=== PATIENT | female | born 1995 | race Caucasian/White ===

== ENCOUNTER 2017-12-10 12:56 | Inpatient (IN) | payer OTHER ==
[~2017-12-10] VITALS: Ht 162.6 cm; Wt 106.4 kg
--- NOTE | 2017-12-10 15:59 | ED PSYCHIATRIC COMPLAINT ---
History of Present Illness General Chief Complaint: Psychiatric Related Complaint Stated Complaint: DEPRESSION Source: patient Exam Limitations: no limitations Allergies Coded Allergies: shellfish derived (Severe, ANAPHYLAXIS 11/25/17) iodine (unknown, shellfish allergy 11/25/17) Triage Note: 22 YO FEMALE TO [place] WITH PARENTS, STATES HER DPRESSION HAS GOTTEN WORSE AND SHE IS HAVING +SI THOUGHTS. DENIES CURRENT PLAN. STATES SHE JUST STARTED ON LITHIUM YESTERDAY, STATES SHE SEES IOP. DENIES ALCOHOL/DRUG USE. Triage Nurses Notes Reviewed? yes : No Patient currently breastfeeds: No HPI: Patient presents for evaluation of worsening depression over the past month or so. Patient has a history of depression prior to that but has not been on any medications until recently. She was just placed on lithium via the [facility] outpatient psychiatric program. Patient states she has had suicide ideation and go so far as to save that she has done "a lot" of research into suicide. She denies a specific plan but states that there is a number of different way she would consider doing it. (Liliam SORIANO,Heladio Harry) Vital Signs & Intake/Output Vital Signs & Intake/Output Vital Signs Date Time Temp Pulse Resp B/P B/P Pulse O2 O2 Flow FiO2 Mean Ox Delivery Rate 12/11 1211 99.6 82 18 131/69 96 Room Air 12/11 0904 99.4 86 18 122/60 99 Room Air / 0630 98.5 89 18 121/73 98 Room Air / 0030 96.4 82 18 141/86 100 Room Air / 2203 98.8 82 18 141/81 98 Room Air 12/10 2002 98.1 80 18 120/77 98 / 1753 98.6 86 18 125/80 99 /03 1539 98.5 76 18 127/67 100 04/03 1434 Room Air / 1302 98.3 89 18 139/82 98 Room Air ED Intake and Output 12/11 0000 12/10 1200 Intake Total 480 Output Total Balance 480 Intake, Oral 480 Patient 238 lb Weight Weight Reported by Patient Measurement Method (Heladio Carpenter DO) Past History Travel History Traveled to [place] past 21 day No Medical History Any Pertinent Medical History? 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 No (Liliam SORIANO,Heladio Harry) Review of Systems Review of Systems Constitutional: Reports: no symptoms. EENTM: Reports: no symptoms. Respiratory: Reports: no symptoms. Cardiovascular: Reports: no symptoms. GI: Reports: no symptoms. Genitourinary: Reports: no symptoms. Musculoskeletal: Reports: no symptoms. Skin: Reports: no symptoms. Neurological/Psychological: Reports: see HPI. Hematologic/Endocrine: Reports: no symptoms. Immunologic/Allergic: Reports: no symptoms. All Other Systems: Reviewed and Negative (Liliam SORIANO,Heladio Harry) Physical Exam Physical Exam General Appearance: SEE BELOW Neurological/Psychiatric: SEE BELOW Comments: General: Alert, calm, cooperative Head: Normocephalic, atraumatic Eyes: Normal inspection, no nystagmus, EOMI Ears: Normal inspection Nose: Normal inspection Throat: Moist mucosa Neck: Supple, no goiter Lungs: No respiratory distress Abdomen: Nondistended Extremities: Normal range of motion grossly, no tremors present, no cyanosis clubbing or edema of the upper extremities Neurologic: cranial nerves II through XII grossly intact, speech clear Psychiatric: No apparent delusions or hallucinations, no pressured speech or thought blocking SAD PERSONS Done? 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 12/11/2017 8:55:40 AM patient signed out to me by Dr. Mckeon at shift global climate change researcher. At the request of this patient's nurse, I have reviewed the chart regarding the amoxicillin order. It seems the patient was being treated presumptively with amoxicillin for a sore throat and the absence of a throat culture. I have ordered a quick strep and we'll treat the patient accordingly. 12/11/2017 11:34:50 AM patient's rapid strep test is negative so the amoxicillin has been discontinued. Jess is currently resting comfortably and awaiting disposition by crisis. (Liliam SORIANO,Heladio Harry) Plan of Care: Orders Procedure Date/time Status LITHIUM 12/15 0600 Active Regular Diet 12/11 D Active Regular Diet 12/11 B Complete Admit to inpatient psych 12/11 1231 Active Admit to inpatient psych 12/11 1230 Active EKG 12/11 1220 Active Patient Data - inpatient psych 12/11 1215 Active Admit to inpatient psych 12/11 1215 Active THROAT CULTURE W/QUICK STREP 12/11 0855 Active Vital Signs 12/11 UNK Active Nursing Misc 12/11 UNK Active Alternative Nursing Therapy 12/11 UNK Active Activity/Ambulation 12/11 UNK Active Add-on Test (ER Only) 12/10 2213 Active Add-on Test (ER Only) 12/10 1819 Active CULTURE,URINE 12/10 1657 Active URINE 12/10 1657 Complete LITHIUM 12/10 1613 Complete Continuous Observation Monitor 12/10 1559 Active ED CRISIS PSYCH CONSULT 12/10 1559 Active URINE DRUGS OF ABUSE 12/10 1541 Complete URINALYSIS 12/10 1541 Complete ETHANOL 12/10 1541 Complete COMPREHENSIVE METABOLIC PANEL 12/10 1541 Complete CBC WITHOUT DIFFERENTIAL 12/10 1541 Complete Current Medications Sig/Davonet Start time Last Medication Dose Stop Time Status Admin Harviell Carbonate 300 MG BID@0800,12/11 2000 UNVr (Harviell Carbonate) Acetaminophen 650 MG Q6P PRN 12/11 1230 UNVr (Tylenol) Al Hydroxide/Mg 30 ML Q4-6 PRN PRN 12/11 1230 UNVr Hydroxide (Maalox Plus) Benztropine Mesylate 1 MG Q6P PRN 12/11 1230 UNVr (Cogentin 1 MG Tablet) Benztropine Mesylate 1 MG Q6P PRN 12/11 1230 UNVr (Cogentin) Gabapentin 300 MG Q6P PRN 12/11 1230 UNVr (Neurontin) Haloperidol 5 MG Q6P PRN 12/11 1230 UNVr (Haldol) Haloperidol 5 MG Q6P PRN 12/11 1230 UNVr (Haldol) Lorazepam 2 MG Q6P PRN 12/11 1230 UNVr (Ativan) Magnesium Hydroxide 30 ML AT BEDTIME PRN 12/11 1230 UNVr (Milk Of Magnesia) Nicotine 2 MG Q2P PRN 12/11 1230 UNVr (Nicotine) Non-Formulary 1 UNIT DAILY@0800 12/11 123 UNVr Medication (NON FORMULARY) Sertraline HCl 100 MG 0800 12/11 123 UNVr (Zoloft) Trazodone HCl 50 MG AT BEDTIME NEED.. 12/11 1230 UNVr (Desyrel) Laboratory Tests 12/10/17 165: Urine Opiates Screen < 100, Methadone Screen < 40, Barbiturate Screen < 60, Ur Phencyclidine Scrn < 6.00, Amphetamines Screen < 100, U Benzodiazepines Scrn < 85, Urine Cocaine Screen < 50, Urine Cannabis Screen < 5.00, Urinalysis LIGHT H , Urine Color YEL, Urine Clarity HAZY H, Urine pH 6.5, Ur Specific [place] 1.015, Urine Protein NEG, Urine Ketones NEG, Urine Nitrite NEG, Urine Bilirubin NEG, Urine Urobilinogen 0.2, Ur Leukocyte Esterase SMALL H, Ur Microscopic SEDIMENT EXAMINED, Urine RBC RARE, Urine WBC 5-10 H, Ur Epithelial Cells FEW, Urine Bacteria MOD H, Urine Mucus RARE, Urine Hemoglobin NEG, Urine Glucose NEG , Urine Test NEGATIVE 12/10/17 1613: Anion Gap 14, Estimated GFR > 60, BUN/Creatinine Ratio 18.3, Glucose 102 H, Calcium 9.7, Total Bilirubin 0.9, AST 25, ALT 28, Alkaline Phosphatase 89, Total Protein 8.5 H, Albumin 4.4, Globulin 4.1, Albumin/Globulin Ratio 1.1, CBC w Diff NO MAN DIFF REQ, RBC 5.28, MCV 85.7, MCH 27.9, MCHC 32.6 L, RDW 12.5, MPV 8.8, Gran % 75.1, Lymphocytes % 19.9 L, Monocytes % 4.4, Eosinophils % 0.2, Basophils % 0.4, Absolute Granulocytes 9.3 H, Absolute Lymphocytes 2.5, Absolute Monocytes 0.5, Absolute Eosinophils 0, Absolute Basophils 0, Harviell < 0.2 L, Serum Alcohol < 10.0 Microbiology 12/10 1656 URINE ROUT: Urine Culture - RES (Heladio Carpenter DO) Hand-Off Endorsed To: Heladio Ricketts MD Endorsed Time: 0700 Pending: consult (Linda SORIANO,Shaq Escobedo) Departure Departure Condition: Stable Clinical Impression Primary Impression: Depression Secondary Impressions: Suicidal ideation Referrals: Patient Has No Primary Care Dr (PCP/Family) Departure Forms: Customer Survey General Discharge Information Psych Admission Note Psychiatric Admission: I have seen and evaluated ASHLY PONCE. I have also reviewed all the pertinent lab results and diagnostic results. ASHLY PONCE will be admitted to our inpatient Psychiatric unit for treatment and care. (Liliam SORIANO,Heladio Harry) Departure Disposition: STILL A PATIENT Comments 12/10/17 10:10 PM The patient was signed out to me by Dr. Ricketts. She is pending a bed search for depression with suicidal ideation. On my evaluation she was in no acute distress. She did complain of menstrual cramping and also a sore throat. Oropharynx was minimally injected. Quick strep was done. Her abdomen was soft and nontender. The patient will be signed out to Dr. Mckeon at 11 PM (Heladio Carpenter DO)
[2017-12-10 16:22] LABS: ABSOLUTE BASOPHIL COUNT 0 /CUMM (0.0-0.2); ABSOLUTE EOSINOPHIL COUNT 0 /CUMM (0.0-0.7); ABSOLUTE GRANULOCYTE CT 9.3 /CUMM (1.4-6.5); ABSOLUTE LYMPH COUNT 2.5 /CUMM (1.2-3.4); ABSOLUTE MONOCYTE COUNT 0.5 /CUMM (0.10-0.60); BASOPHIL % 0.4 % (0.0-2.0); EOSINOPHIL % 0.2 % (0-5); GRANULOCYTE % 75.1 % (42.2-75.2); HEMATOCRIT 45.2 % (37-47); MEAN CORPUSCULAR HGB 27.9 PG (27.0-31.0); MEAN CORPUSCULAR HGB CONC 32.6 G/DL (33.0-37.0); MEAN CORPUSCULAR VOLUME 85.7 FL (81.0-99.0); MEAN PLATELET VOLUME 8.8 FL (7.4-10.4); PLATELET COUNT 300 /CUMM (130-400); RBC DISTRIBUTION WIDTH 12.5 % (11.5-14.5); RED BLOOD CELL CT 5.28 /CUMM (4.20-5.40); WHITE BLOOD CELL COUNT 12.4 /CUMM (4.8-10.8)
[2017-12-10 18:39] LABS: LITHIUM < 0.2 mmol/L (0.6-1.2)
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
[2017-12-11 16:22] VITALS: BP 129/76; BP 136/93
[2017-12-11] MEDS ORDERED: LITHIUM CARBON300 M4 PO (16:48)
[2017-12-11] MEDS ORDERED: SERTRALINE HCL100 MG PO (16:50)
[2017-12-11 19:58] VITALS: BP 141/57
--- NOTE | 2017-12-11 21:14 | History & Physical ---
General Information and HPI MD Statement: I have seen and personally examined ASHLY PONCE and documented this H&P. The patient is a 22 year old F who presented with a patient stated chief complaint of [ medical evaluation ]. Source of Information: patient Exam Limitations: no limitations History of Present Illness: 22 Yo F with PMH PCOS on OC pills and recently diagnosed bipolar disorder presented in ER for Suicidal ideation. Recent change in psych medication was not helping her. As she is on OC pills, she gets occasional abdominal cramps, otherwise currently offers no complains. Yesterday while in ER she complained of sore throat, she was given Amoxicillin but discontinued later once strep throat was negative. Complete ROS unremarkable. Patient patient smokes on and off, last alcohol drink 2 weeks back, drinks socially, occasionally uses marijuana last use 1 month back. She is allergic to shellfish and carries an EpiPen Allergies/Medications Allergies: Coded Allergies: shellfish derived (Severe, ANAPHYLAXIS 11/25/17) iodine (unknown, shellfish allergy 11/25/17) Home Med list Epinephrine (Epipen 2-Stefano) 0.3 MG/0.3 ML AUTO.INJCT (Unknown Dose) IM allergy (Reported) Ethinyl Estradiol/Drospirenone (Gianvi 3 MG-0.02 MG Tablet) 0.02 MG-3 MG (24) TABLET 1 TAB PO DAILY pcos (Reported) [place] Carbonate (Unknown Strength) CAPSULE (Unknown Dose) PO MOOD/PSYCHOSIS (Reported) Sertraline HCl (Unknown Strength) TABLET (Unknown Dose) PO MOOD (Reported) Compliance With Home Meds: GOOD Past History Travel History Traveled to [place] past 21 day No Medical History Neurological: NONE EENT: NONE Cardiovascular: NONE Respiratory: NONE Gastrointestinal: NONE Hepatic: NONE Renal: NONE Musculoskeletal: NONE Psychiatric: bipolar disease Endocrine: NONE Blood Disorders: NONE Cancer(s): NONE 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 Home Who Do You Live With? parent Services at Home: None Primary Language: French Smoking Status: Current Some Day Smoker ETOH Use: occasional use Illicit Drug Use: marijuana Functional Ability ADLs Independent: dressing, eating, toileting, bathing. Ambulation: independent IADLs Independent: shopping, housework, finances, food prep, telephone, transportation , medication admin. Sexual History Sexually Active No # of partners 1 Sexual Orientation Homosexual Use of Protection No Employment History Employment Unemployed Profession/Employer work and study Review of Systems Review of Systems Constitutional: Reports: no symptoms. EENTM: Reports: no symptoms. Cardiovascular: Reports: no symptoms. Respiratory: Reports: no symptoms. GI: Reports: no symptoms. Genitourinary: Reports: no symptoms. Musculoskeletal: Reports: no symptoms. Skin: Reports: no symptoms. Hematologic/Endocrine: Reports: no symptoms. All Other Systems: Reviewed and Negative Date of LMP: 11/25/17 Exam & Diagnostic Data Last 24 Hrs of Vital Signs/I&O Vital Signs Date Time Temp Pulse Resp B/P B/P Pulse O2 O2 Flow FiO2 Mean Ox Delivery Rate 12/11 1957 98.6 94 141/57 12/11 1622 100 129/76 12/11 1622 99.2 93 136/93 12/11 1435 99.2 85 20 138/69 96 Room Air 12/11 1211 99.6 82 18 131/69 96 Room Air 12/11 0904 99.4 86 18 122/60 99 Room Air 12/11 0630 98.5 89 18 121/73 98 Room Air Intake & Output 12/11 1600 / 0000 12/12 0800 Intake Total Output Total Balance Patient 106.367 kg Weight Physical Exam General Appearance Alert, Oriented X3, Cooperative, No Acute Distress Skin No Rashes, No Breakdown HEENT Atraumatic, PERRLA, EOMI Neck Supple, No JVD, No thryomegaly Lymphatic Cervical nl Cardiovascular Regular Rate, Normal S1, Normal S2, No Murmurs Lungs Clear to Auscultation, Normal Air Movement Abdomen Normal Bowel Sounds, Soft, No Tenderness, No Hepatospenomegaly Neurological Exam Findings: Normal Gait, Normal Speech, Strength at 5/5 X4 Ext, Normal Tone, Sensation Intact, Cranial Nerves 3-12 NL, Reflexes 2+ Cranial Nerves II through XII: 3 to 12 intact Extremities No Clubbing, No Cyanosis, No Edema, Normal Pulses Vascular Normal Pulses, Pulses Symmetrical Last 24 Hrs of Labs/Alec: Laboratory Tests 12/10 12/10 1657 1613 Chemistry Sodium (137 - 145 mmol/L) 141 Potassium (3.5 - 5.1 mmol/L) 4.2 Chloride (98 - 107 mmol/L) 101 Carbon Dioxide (22 - 30 mmol/L) 26 Anion Gap (5 - 16) 14 BUN (7 - 17 mg/dL) 11 Creatinine (0.5 - 1.0 mg/dL) 0.6 Estimated GFR (>60 ml/min) > 60 BUN/Creatinine Ratio (7 - 25 %) 18.3 Glucose (65 - 99 mg/dL) 102 H Hemoglobin A1c (4.2 - 5.8 %) 5.1 Calcium (8.4 - 10.2 mg/dL) 9.7 Total Bilirubin (0.2 - 1.3 mg/dL) 0.9 AST (14 - 36 U/L) 25 ALT (9 - 52 U/L) 28 Alkaline Phosphatase (<127 U/L) 89 Total Protein (6.3 - 8.2 g/dL) 8.5 H Albumin (3.5 - 5.0 g/dL) 4.4 Globulin (1.9 - 4.2 gm/dL) 4.1 Albumin/Globulin Ratio (1.1 - 2.2 %) 1.1 Triglycerides (<150 mg/dL) 137 Cholesterol (<200 MG/DL) 216 H LDL Cholesterol, Calc (65 - 129 mg/dL) 137 H HDL Cholesterol (40 - 60 mg/dL) 52 Cholesterol/HDL Ratio (0.00 - 4.23 %) 4 Hematology CBC w Diff NO MAN DIFF REQ WBC (4.8 - 10.8 /CUMM) 12.4 H RBC (4.20 - 5.40 /CUMM) 5.28 Hgb (12.0 - 16.0 G/DL) 14.8 Hct (37 - 47 %) 45.2 MCV (81.0 - 99.0 FL) 85.7 MCH (27.0 - 31.0 PG) 27.9 MCHC (33.0 - 37.0 G/DL) 32.6 L RDW (11.5 - 14.5 %) 12.5 Plt Count (130 - 400 /CUMM) 300 MPV (7.4 - 10.4 FL) 8.8 Gran % (42.2 - 75.2 %) 75.1 Lymphocytes % (20.5 - 51.1 %) 19.9 L Monocytes % (1.7 - 9.3 %) 4.4 Eosinophils % (0 - 5 %) 0.2 Basophils % (0.0 - 2.0 %) 0.4 Absolute Granulocytes (1.4 - 6.5 /CUMM) 9.3 H Absolute Lymphocytes (1.2 - 3.4 /CUMM) 2.5 Absolute Monocytes (0.10 - 0.60 /CUMM) 0.5 Absolute Eosinophils (0.0 - 0.7 /CUMM) 0 Absolute Basophils (0.0 - 0.2 /CUMM) 0 Toxicology Urine Opiates Screen (>2000 NG/ML) < 100 Methadone Screen (>300 NG/ML) < 40 Barbiturate Screen (>200 NG/ML) < 60 Ur Phencyclidine Scrn (>25 NG/ML) < 6.00 Amphetamines Screen (>1000 NG/ML) < 100 U Benzodiazepines Scrn (>200 NG/ML) < 85 [place] (0.6 - 1.2 mmol/L) < 0.2 L Urine Cocaine Screen (>300 NG/ML) < 50 Urine Cannabis Screen (>50 NG/ML) < 5.00 Serum Alcohol (<10 MG/DL) < 10.0 Urines Urinalysis LIGHT H Urine Color (YEL,AMB,STR) YEL Urine Clarity (CLEAR) HAZY H Urine pH (5.0 - 8.0) 6.5 Ur Specific [place] (1.001 - 1.035) 1.015 Urine Protein (NEG,<30 MG/DL) NEG Urine Ketones (NEG) NEG Urine Nitrite (NEG) NEG Urine Bilirubin (NEG) NEG Urine Urobilinogen (0.1 - 1.0 EU/dl) 0.2 Ur Leukocyte Esterase (NEG) SMALL H Ur Microscopic SEDIMENT EXAMINED Urine RBC (0 - 5 /HPF) RARE Urine WBC (0 - 2 /HPF) 5-10 H Ur Epithelial Cells (NONE,FEW) FEW Urine Bacteria (NEG/NONE) MOD H Urine Mucus (FEW,NONE) RARE Urine Hemoglobin (NEG) NEG Urine Glucose (N MG/DL) NEG Urine Test NEGATIVE Assessment/Plan Assessment: # Bipolar disorder with SI : agree with psych plan # sore throat yesterday, no current complains. NO e/o pharyngeal inflammation on exam. no ABX # PCOS : continue OC pills As Ranked By This Provider Problem List: 1. Depression 2. Suicidal ideation 3. PCOS (polycystic ovarian syndrome) Miscellaneous Miscellaneous Documentation Attending Case Discussed With: Callum SORIANO,Shaq Primary Care Physician: Patient Has No Primary Care Dr Patient sees these Specialists obgyn Level of Patient Care: CRYSTAL Pacheco Attending MD Review Statement Attending Statement Attending MD Statement: I interviewed and noted H and P
[2017-12-12] MEDS ORDERED: EPIPEN 2-P0.3 MG/0.3 IM (01:57)
[2017-12-12] MEDS ORDERED: GIANVI 3 MG-0.1 EACH PO (01:57)
--- NOTE | 2017-12-12 02:13 | Admission Certification ---
Admission Certification Certification Statement - As attending physician, I certify that at the time of - admission, based on clinical presentation, severity of - symptoms, need for further diagnostic testing and - therapeutic interventions, and risk of adverse outcomes - without in-hospital treatment, in my clinical assessment, - this patient requires an acute hospital stay for a minimum - of two nights or longer. I have also considered psychsocial - factors such as support system, advanced age, financial - issues, cognitive issues, and failed out-patient treatments, - past re-admission history, safety of patient, and lack of - compliance as applicable. Specific rationale supporting this admission is: Suicidal ideation
[2017-12-12 07:37] VITALS: BP 101/68
--- NOTE | 2017-12-12 10:34 | CPS PROVIDER INIT ASMT PSYCH ---
Psychiatric Admission Plain Clothes Police Officer's Note Reviewed: Yes Patient Seen and Examined: Yes Identifying Information: Kalyn is a 22 year old single female who was referred to [facility] for worsening depression with +SI Chief Complaint: I'm at [facility] next door and my depression has gotten worse." Reaction to Hospitalization: voluntarily admitted History of Present Illness Onset of Illness: since age 14 Circumstances Leading to Admission: thoughts of suicide at [facility] Problem(s) Justifying Need for Admission: see above Past Psychiatric History Past Diagnosis(es)- if any: F32.9 Unspecified Depressive Disorder F41.9 Unspecified Anxiety Disorder F50.9 Unspecified Feeding or Eating Disorder Past Precipitating Factors- if any: first admission - Include inpatient and outpatient treatment Treatment History: [facility] since November 22, 2017 History of Suicide Attempts or Gestures none Substance Abuse History: denied Allergies: Coded Allergies: shellfish derived (Severe, ANAPHYLAXIS 11/25/17) iodine (unknown, shellfish allergy 11/25/17) Home Med List: Hood 300 mg BID Sertraline was stopped 3 days ago - Include any medical condition(s) that may - impact the patient's recovery/remission Past History Medical History Neurological: NONE EENT: NONE Cardiovascular: NONE Respiratory: NONE Gastrointestinal: NONE Hepatic: NONE Renal: NONE Musculoskeletal: NONE Psychiatric: bipolar disease Endocrine: NONE Blood Disorders: NONE Cancer(s): NONE CIVIL DESIGN SPECIALIST/Reproductive: PCOS Isolation History: Standard Influenza Vaccine: 04/09/17 Surgical History Surgical History: HIP DYSPLASIA Psychiatric Family/Social Hx Family History Psychiatric Illness: parents take some sort of psychiatric medication, patient not sure what, patient 's sister attempted suicide and was admitted to [facility] Substance Use: denied Suicides: No completed suicides, sister attempted suicide Social History Living Situation: Lives with parents Significant Relationships (family/friends): Parents and sister Education: Was doing some college Vocation/Occupation: Currently unemployed Legal: No legal entanglements Healthly Behaviors Screening Tobacco Screening Tobacco Use from ED Docu: Current Not Daily - If tobacco counseling indicated - the following topics are required. - #1 Recognizing dangerous situations. - #2 Coping Skills. - #3 Basic information about quitting. Status of Tobacco Cessation Counseling: #1, #2 AND #3 Completed Cessation Med Status Pt Refused Cessation Meds Alcohol Screening - ETOH screen POS if BAL >=80 or Audit-C>= M4/F3 Audit-C Score from Diag Assess: 0 Blood Alcohol Level: Laboratory Tests 12/10 1613 Toxicology Serum Alcohol (<10 MG/DL) < 10.0 Alcohol Use Screening Results: Neg per Audit C &/or BAL - If ETOH counseling indicated - the following topics are required. - #1 Express concern about the patient's - drinking at unhealthy levels, include informing - of national norms for moderate drinking: - men <= 14 drinks/week, max 4 drinks/occasion - women <= 7 drinks/week, max 3 drinks/occasion - #2 Providing feedback, including linking alcohol to - negative physical effects (liver injury, hypertension) - negative emotional effects (relationship problems and - depression) - negative occupational consequences (reduced work - performance) - #3 Advising the patient to abstain from alcohol or - to drink below national norms for moderate drinking - (as listed above). Status of ETOH Use Counseling: N/A B/C NO ETOH Use Metabolic Screening - Screen if on a Neuroleptic Medication - Metabolic screening should include: - Blood Pressure, BMI, Glucose or Hgb A1c, & a - Lipid profile from within the past 365 days. Metabolic Screening ([X]) Not Applicable, patient not on a neuroleptic. Exam and Plan Mental Status Examination Ambulation Status: Patient is fully mobile and unsteady on her feet Appearance: Unremarkable appearance Attitude towards examiner: Patient was calm and cooperative Psychomotor activity: Showed normal psychomotor activity Behavior: The patient did not show any abnormal or bizarre behaviors Quality of speech: Patient speech was normal, not pressured, not slurred Affect: Patient showed a good range of affect Mood: Patient reported that her mood has been depressed Suicidal Ideation: Patient reported that she has had thoughts of suicide almost daily lately Homicidal Ideation: Patient denied violent thoughts or thoughts of homicide Hallucinations: She denied hallucinations Paranoid/Delusional Material: Patient denies feeling paranoid, there were no delusions Difficulties with thought organization: Patient did not have any difficulties with thought organization, she was coherent Insight: Patient showed reasonable insight Judgment: Reasonable judgment Orientation: Patient was alert and oriented to time, place, and person. Cognition: Showed good attention and concentration Memory Function: There were no short-term memory deficits Estimate of intellectual functioning: Average Assets/Strengths Patient Identified Assets/Strengths: Patient seems to be likable, she has a supportive family Impression/Plan Impression and Plan: 22-year-old single white female who was admitted from the intensive outpatient program because of ongoing thoughts of suicide - Include all active medical diagnosis that require tx DSM 5 Diagnosis(es): Unspecified depressive disorder History of bulimia - Initial Tx Plan for Active Psych & Medical Conditions Treatment Plan: Inpatient psychiatric care with safety checks every 15 minutes and Continue lithium 300 mg twice daily Nursing assessments, vital signs, and patient education and Group therapy and milieu therapy and activity therapy Work to obtain biopsychosocial assessment, collateral information, and set up aftercare plans Psychiatrist to meet with the patient daily to evaluate mental status and monitor medications. - Factors that would help patient function - in a less restrictive setting. Factors: The patient will and will be discharged once she is free of suicide thoughts
--- NOTE | 2017-12-12 11:05 | SOCIAL WORKER PROG NOTE PSYCH ---
Social Work Progress Note Progress Note Pt feels hopeless and lost, and is concerned that her eating disorder will be revved up when she take lithium, pt reports she had bulimia and has been to several IOP/PHP in the past, she denies current eating disorder behaviors. She offers the medication zoloft made her feel suicidal. Pt wants to feel better, she states her depression had gotten worse and she is happy she can be in the hopsital right now and that she was grateful some extended family reached out to her it made her feel supported. I will reach out to set up a family meeting for Saturday.
[2017-12-12 12:23] VITALS: BP 124/72
[2017-12-12 15:56] VITALS: BP 132/72
[2017-12-12 19:48] VITALS: BP 122/84
[2017-12-13 07:51] VITALS: BP 130/86
--- NOTE | 2017-12-13 08:25 | CP SOUTH PROGRESS NOTE PSYCH ---
Psych (Inpt) Progress Note Progress Note Vital Signs Date Time Temp Pulse B/P B/P Pulse O2 O2 Flow FiO2 Mean Ox Delivery Rate 12/13 1222 95 148/76 12/13 0751 97.0 82 130/86 12/12 1948 99.3 98 122/84 Mental Status Examination: Patient is fully mobile and steady on her feet, she was calm and cooperative, and showed normal psychomotor activity. She did not show any abnormal or bizarre behaviors Patient speech was normal, not pressured, not slurred Patient showed a good range of affect, she reported that her mood changes several times during the day Patient reported that she is feeling hopeful and misses home, denied thoughts of suicide, denied violent thoughts or thoughts of homicide She denied hallucinations, denies feeling paranoid, there were no delusions Patient did not have any difficulties with thought organization, she was coherent Patient showed reasonable insight, reasonable judgment Patient was alert and oriented to time, place, and person. Showed good attention and concentration, there were no short-term memory deficits Assessment: Kalyn is a 22-year-old single White female who was admitted from the intensive outpatient program because of ongoing thoughts of suicide Diagnosis(es): Unspecified depressive disorder History of bulimia Treatment Plan Update: [place] blood level, electrolytes, BUN and creatinine, and TSH for tomorrow morning Continue lithium 300 mg twice daily Nursing assessments, vital signs, and patient education , Group therapy and milieu therapy and activity therapy Psychiatrist to meet with the patient daily to evaluate mental status and monitor medications.
[2017-12-13 12:22] VITALS: BP 148/76
--- NOTE | 2017-12-13 14:02 | SOCIAL WORKER PROG NOTE PSYCH ---
Social Work Progress Note Progress Note Pt offered she felt sad late afternoon, now she currently feels 4 out of 10 sadness, denies si/hi/ah/vh. She was wondering about discharge plans and states she would feel comfortable with returning to [facility]. An intake was set up for 1 :15pm on Saturday, family is agreeable to plan, and would like tot ouch base over the phone on Saturday prior to discharge. Pt plans to attend groups today, and her family will be visiting later today, pt states she is feeling more energy then before.
[2017-12-13 15:42] VITALS: BP 122/71
[2017-12-13 19:41] VITALS: BP 130/76
[2017-12-14 06:54] LABS: LITHIUM 0.3 mmol/L (0.6-1.2)
[2017-12-14 07:41] VITALS: BP 129/53
[2017-12-14 12:00] VITALS: BP 101/66
--- NOTE | 2017-12-14 12:57 | CP SOUTH PROGRESS NOTE PSYCH ---
Psych (Inpt) Progress Note Progress Note Include the following elements, when applicable: Involvement in the active treatment of the patient with behavioral observations of the patient and the patient's response to the treatment. Review of the ongoing treatment process in the context of the treatment plan. Indication of how multi-disciplinary staff members are carrying out the treatment plan. Plans for future interventions and recommendations for revision of the treatment plan. Liaison with other physicians/providers. Progress Note: Pt notes that having intensive mood up and down over the course of the day. Told may have bipolar disorder. Discussed borderline personality disorder with patient as has some traits. Notes some allergy congestion. Notes poor sleep. Denies SI or HI. Current Medications Sig/[place] Start time Last Medication Dose Route Stop Time Status Admin Acetaminophen 650 MG Q6P PRN 12/11 1230 AC 12/13 PO 1128 Al Hydroxide/Mg 30 ML Q4-6 PRN PRN 12/11 1230 AC Hydroxide PO Benzocaine/Menthol 1 CONRAD Q2P PRN 12/14 1215 AC PO Benztropine Mesylate 1 MG Q6P PRN 12/11 1230 AC PO Benztropine Mesylate 1 MG Q6P PRN 12/11 1230 AC IM Fluticasone 2 SPRAY DAILY 12/14 1211 AC Propionate DESEAN 12/16 1200 Gabapentin 300 MG Q6P PRN 12/11 1230 AC 12/13 PO 1559 Haloperidol 5 MG Q6P PRN 12/11 1230 AC PO Haloperidol 5 MG Q6P PRN 12/11 1230 AC IM [place] Carbonate 300 MG BID@0800,12/11 AC 12/14 PO 08 Loratadine 10 MG 0800 12/14 0800 AC 12/14 PO 0805 Lorazepam 2 MG Q6P PRN 12/11 1230 AC IM Magnesium Hydroxide 30 ML AT BEDTIME PRN 12/11 1230 AC PO Melatonin 5 MG AT BEDTIME 12/14 2200 AC PO Nicotine 2 MG Q2P PRN 12/11 1230 AC PO Patient Own 1 UNIT DAILY@0800 12/13 0800 AC 12/14 Medication PO 08 Topiramate 25 MG 0800,1700 12/13 1700 AC 12/14 PO 0806 Trazodone HCl 100 MG AT BEDTIME 12/14 2200 AC PO Trazodone HCl 50 MG AT BEDTIME NEED.. 12/11 1230 DC 12/13 PO 2134 [place] Alcohol 1 ED BID 12/14 1206 AC TOP Laboratory Tests 12/14 0550 Chemistry Sodium (137 - 145 mmol/L) 143 Potassium (3.5 - 5.1 mmol/L) 4.2 Chloride (98 - 107 mmol/L) 103 Carbon Dioxide (22 - 30 mmol/L) 25 Anion Gap (5 - 16) 16 BUN (7 - 17 mg/dL) 13 Creatinine (0.5 - 1.0 mg/dL) 0.8 Estimated GFR (>60 ml/min) > 60 BUN/Creatinine Ratio (7 - 25 %) 16.3 TSH &T3 &Free T4 Intrp (0.270 - 4.20 uIU/mL) 3.370 Toxicology [place] (0.6 - 1.2 mmol/L) 0.3 L Vital Signs Date Time Temp Pulse Resp B/P B/P Pulse O2 O2 Flow FiO2 Mean Ox Delivery Rate 12/14 1200 89 101/66 12/14 0741 97.2 97 129/53 12/13 1941 98.1 92 130/76 12/13 1542 92 122/71 MSE General appearance: good hygiene and grooming; Attitude: cooperative; Eye contact: appropriate; Movement: no psychomotor agitation or slowing; Speech: nl fluency, nl rate/rhythm, nl volume, nl prosody; Mood: "numb now" Affect: irritable, flat, appropriate, constricted, non-labile, congruent; Thought process: linear and goal-directed; Thought content: denied SI or HI, no paranoid ideation; Perception: denied hallucinations- auditory, visual, does not appear to be responding to internal stimuli; I/J: limited A/P: Pt with marked mood lability, irritability, w/o heather episodes of trupti or hypomania reported. - Increased trazodone and added melatonin - Throat lozenges - Flonase x3 d - Aquaphor for old burn - Otherwise continue current medication regimen -Encourage integration into the milieu
[2017-12-14 15:48] VITALS: BP 130/75
[2017-12-14 20:00] VITALS: BP 132/72
[2017-12-15 08:03] VITALS: BP 118/66
[2017-12-15 12:15] VITALS: BP 118/78
--- NOTE | 2017-12-15 13:50 | CP SOUTH PROGRESS NOTE PSYCH ---
Psych (Inpt) Progress Note Progress Note Include the following elements, when applicable: Involvement in the active treatment of the patient with behavioral observations of the patient and the patient's response to the treatment. Review of the ongoing treatment process in the context of the treatment plan. Indication of how multi-disciplinary staff members are carrying out the treatment plan. Plans for future interventions and recommendations for revision of the treatment plan. Liaison with other physicians/providers. Progress Note: Pt notes improved sleep. Visited by parents today who are supportive. This seems to have brightened her mood. Denies SI or HI. Current Medications Sig/[place] Start time Last Medication Dose Route Stop Time Status Admin Acetaminophen 650 MG Q6P PRN 12/11 1230 AC 12/15 PO 0806 Al Hydroxide/Mg 30 ML Q4-6 PRN PRN 12/11 1230 AC Hydroxide PO Benzocaine/Menthol 1 CONRAD Q2P PRN 12/14 1215 AC 12/14 PO 1826 Benztropine Mesylate 1 MG Q6P PRN 12/11 1230 AC PO Benztropine Mesylate 1 MG Q6P PRN 12/11 1230 AC IM Bism[place] Subsalicylate 30 ML PCHS PRN 12/15 1400 UNVr PO Fluticasone 2 SPRAY DAILY 12/14 1211 AC 12/15 Propionate DESEAN 12/16 1200 0804 Gabapentin 300 MG Q6P PRN 12/11 1230 AC 12/13 PO 1559 Haloperidol 5 MG Q6P PRN 12/11 1230 AC PO Haloperidol 5 MG Q6P PRN 12/11 1230 AC IM [place] Carbonate 300 MG BID@0800,12/11 2000 AC 12/15 PO 0804 Loratadine 10 MG 0800 12/14 0800 AC 12/15 PO 0804 Lorazepam 2 MG Q6P PRN 12/11 1230 AC IM Magnesium Hydroxide 30 ML AT BEDTIME PRN 12/11 1230 AC PO Melatonin 5 MG AT BEDTIME 12/14 2200 AC 12/14 PO 2018 Nicotine 2 MG Q2P PRN 12/11 1230 AC PO Patient Own 1 UNIT DAILY@0800 / 0800 AC 12/15 Medication PO 0804 Topiramate 25 MG 0800,1700 04/06 1700 AC 12/15 PO 0804 Trazodone HCl 100 MG AT BEDTIME 12/14 2200 AC 12/14 PO 2018 [place] Alcohol 1 ED BID 12/14 1206 AC 12/15 TOP 1000 Laboratory Tests 12/14 0550 Chemistry Sodium (137 - 145 mmol/L) 143 Potassium (3.5 - 5.1 mmol/L) 4.2 Chloride (98 - 107 mmol/L) 103 Carbon Dioxide (22 - 30 mmol/L) 25 Anion Gap (5 - 16) 16 BUN (7 - 17 mg/dL) 13 Creatinine (0.5 - 1.0 mg/dL) 0.8 Estimated GFR (>60 ml/min) > 60 BUN/Creatinine Ratio (7 - 25 %) 16.3 TSH &T3 &Free T4 Intrp (0.270 - 4.20 uIU/mL) 3.370 Toxicology [place] (0.6 - 1.2 mmol/L) 0.3 L Vital Signs Date Time Temp Pulse Resp B/P B/P Pulse O2 O2 Flow FiO2 Mean Ox Delivery Rate 12/15 1215 98 118/78 12/15 0803 97.1 92 118/66 12/14 2000 96.8 88 132/72 12/14 1548 96 130/75 MSE General appearance: good hygiene and grooming; Attitude: cooperative; Eye contact: appropriate; Movement: no psychomotor agitation or slowing; Speech: nl fluency, nl rate/rhythm, nl volume, nl prosody; Mood: "better" Affect: irritable, flat, appropriate, constricted, non-labile, congruent; Thought process: linear and goal-directed; Thought content: denied SI or HI, no paranoid ideation; Perception: denied hallucinations- auditory, visual, does not appear to be responding to internal stimuli; I/J: limited A/P: Pt with marked mood lability, irritability, w/o heather episodes of trupti or hypomania reported. - Pepto from some GI upset and looser stool (not diarrhea) - Otherwise continue current medication regimen -Encourage integration into the milieu
[2017-12-15 15:49] VITALS: BP 104/82
[2017-12-15 19:41] VITALS: BP 123/69
[2017-12-16 07:36] VITALS: BP 110/77
[2017-12-16] MEDS ORDERED: FLUTICASONE PRO16 GM NAS (08:21)
[2017-12-16] MEDS ORDERED: LITHIUM CARBON450 M1 PO (08:21)
[2017-12-16] MEDS ORDERED: LORATADINE10 M1 PO (08:21)
[2017-12-16] MEDS ORDERED: TOPIRAMATE25 M2 PO (08:21)
--- NOTE | 2017-12-16 08:23 | Patient Discharge Instructions ---
Psych Discharge Inst General Discharge Information Reason for Admission: thoughts of suicide Psy Discharge Primary Diag+ unspecified Bipolar Summary Tests/Major Procedures Lab BUN 13 mg/dL 12/14/17 0550 Creatinine 0.8 mg/dL 12/14/17 0550 Estimated GFR > 60 ml/min 12/14/17 0550 TSH &T3 &Free T4 Intrp 3.370 uIU/mL 12/14/17 0550 [place] 0.3 mmol/L L 12/14/17 0550 Studies Pending at DC: None Patient Instructions Contact Information Your Psychiatrist on [facility] was Lupe SORIANO,[place] * If you are experiencing an emergency related to this hospitalization, please call [phone] to contact the treating psychiatrist or the psychiatrist-on- call. * To Request a copy of your medical records, please contact the Medical Records Department at [phone]. * To request results of studies pending at the time of discharge, please call [phone]. * Continue your Medications until directed to stop by your Healthcare provider. General Medication Information Please continue to take your new medications and your continued home medications , unless otherwise indicated on your discharge medication list, or unless directed by your MD or GROUTER HELPER to stop them. Special Instructions Diet Regular Activity Normal Other Inst/Recommendations blood work next week - Tobacco Use Treatment Offered Post DC Medications Offered: Refused Tob Medication Tx Post DC Tobacco Treatment Plan: Refused Tobacco Tx Pgm - EtOH/Drug Use D/O Treatment Offered Post DC Medications Offered: NA-No EtOH/Drug Use D/O Post DC EtOH/SubAbuse TX Plan: NA-No EtOH/Drug Use D/O Metabolic Screening Not Applicable, patient not on a neuroleptic. Advance Directives Does the Patient have Medical Advance Directives No/Refused further info Does Pt have Psychiatric Advance Directives? No/Refused further info Does Patient have a Designated Surrogate Decision Maker: No Information About Psychiatric Advance Directives Provided? Refused Discharge Plan Post Hospital Treatment Plan: GH-IOP
[2017-12-16] MEDS ORDERED: ROBITUSSIN COU237 M1 PO (08:28)
--- NOTE | 2017-12-16 11:09 | SOCIAL WORKER PROG NOTE PSYCH ---
Social Work Progress Note Progress Note Met with this patient for the first time today. Introduced myself and acknowledged that she was looking to discharge today. She said she felt ready and that coming in has helped her feel more hopeful. Reports no thoughts of SI at this time. Couldn't really identify a trigger to what changed her mental status before admission. Reports supportive family. Works at [employer] in [place]. Looking to return home to parents' home. Reports anxiety is a 5 (scale 0-10, 10 being most severe), Sadness 5 as well. Asked what would make these numbers a 4? She said she was feeling stressed around leaving today and her discharge plans. I informed her that there was an intake set up for 1:15 at [facility] today. She ended up calling her Mom during our meeting to see if she can get out of work earlier to pick her up. Mom seemed to be able to accomadate this request. No other concerns from her at this time.
[2017-12-16 12:22] VITALS: BP 114/70
--- NOTE | 2017-12-16 12:26 | CP SOUTH PROGRESS NOTE PSYCH ---
Psych (Inpt) Progress Note Progress Note I reviewed the notes by Dr. Ribera from the weekend of December 14 and 2017. The patient's treatment and progress were discussed and the treatment team meeting this morning. Treatment team included nursing staff, social work staff, group and activity therapy staff and psychiatrist. Mental Status Examination: Patient was calm and cooperative, and showed normal psychomotor activity. She did not show any abnormal or bizarre behaviors. Patient speech was normal, not pressured/not slurred. Patient showed a good range of affect. She reported that her mood since Saturday has been "good." Patient reported that she is feeling hopeful, denied thoughts of suicide, denied violent thoughts or thoughts of homicide She denied hallucinations, denies feeling paranoid, and there were no delusions Patient did not have any difficulties with thought organization, she was coherent. Patient was alert and oriented to time, place, and person. Showed good attention and concentration, there were no short-term memory deficits. Assessment: Kalyn is a 22-year-old single White female who was admitted from the intensive outpatient program because of ongoing thoughts of suicide Diagnoses: Unspecified depressive disorder History of bulimia ? Disruptive Mood Dysregylation Treatment Plan Update: D/C Home with IOP Follow Up
--- NOTE | 2017-12-16 13:02 | DISCHARGE SUMMARY REPORT-PSYCH ---
Visit Information Visit Dates/Diagnosis' Admission Date: 12/11/17 Discharge Date: 12/16/17 Reason for Admission: thoughts of suicide Psy Discharge Primary Diag: unspecified Bipolar Hospital Course Significant Lab Findings: Lab BUN 13 mg/dL 12/14/17 0550 BUN/Creatinine Ratio 16.3 % 12/14/17 0550 Creatinine 0.8 mg/dL 12/14/17 0550 Estimated GFR > 60 ml/min 12/14/17 0550 TSH &T3 &Free T4 Intrp 3.370 uIU/mL 12/14/17 0550 [place] 0.3 mmol/L L 12/14/17 0550 Course Complications: The patient did not have any complications while she was on the inpatient psychiatric unit Consultations: The patient had a history and physical examination while she was on the inpatient psychiatric unit. Please refer to the cup setter lockstitch's H&P note in the patient's electronic health record Allergies: Coded Allergies: shellfish derived (Severe, ANAPHYLAXIS 11/25/17) Hospital Course/TX Response: December 12, 2017: impression and Plan: 22-year-old single white female who was admitted from the intensive outpatient program because of ongoing thoughts of suicide. DSM 5 Diagnosis(es): Unspecified depressive disorder; History of bulimia. Treatment Plan: Inpatient psychiatric care with safety checks every 15 minutes and Continue lithium 300 mg twice daily , Nursing assessments, vital signs, and patient education and Group therapy and milieu therapy and activity therapy Work to obtain biopsychosocial assessment, collateral information, and set up aftercare plans Psychiatrist to meet with the patient daily to evaluate mental status and monitor medications. December 13, 2017: [place] blood level, electrolytes, BUN and creatinine, and TSH for tomorrow morning Continue lithium 300 mg twice daily. December 14, 2017: (Dr. Mounika MD, covering for the weekend) Pt with marked mood lability, irritability, w/o heather episodes of trupti or hypomania reported. - Increased trazodone and added melatonin - Throat lozenges - Flonase x3 d - Aquaphor for old burn - Otherwise continue current medication regimen December 15, 2017 (Dr. Mounika MD, covering for the weekend): Peptobismol for GI upset and looser stool (not diarrhea) - Otherwise continue current medication regimen December 16, 2017: Patient was calm and cooperative, and showed normal psychomotor activity. She did not show any abnormal or bizarre behaviors. Patient speech was normal, not pressured/not slurred. Patient showed a good range of affect. She reported that her mood since Saturday has been "good." Patient reported that she is feeling hopeful, denied thoughts of suicide, denied violent thoughts or thoughts of homicide. She denied hallucinations, denies feeling paranoid, and there were no delusions. Patient did not have any difficulties with thought organization, she was coherent. Patient was alert and oriented to time, place, and person. Showed good attention and concentration, there were no short-term memory deficits. Assessment: Kalyn is a 22-year-old single White female who was admitted from the intensive outpatient program because of ongoing thoughts of suicide Diagnoses: Unspecified depressive disorder History of bulimia ? Disruptive Mood Dysregylation Treatment Plan Update: D/C Home with IOP Follow Up Discharge HBIPS - Tobacco Use Treatment Offered Post DC Medications Offered: Refused Tob Medication Tx Post DC Tobacco Treatment Plan: Refused Tobacco Tx Pgm - EtOH/Drug Use D/O Treatment Offered Post DC Medications Offered: NA-No EtOH/Drug Use D/O Post DC EtOH/SubAbuse TX Plan: NA-No EtOH/Drug Use D/O Metabolic Screening - Screen if on a Neuroleptic Medication - Metabolic screening should include: - Blood Pressure, BMI, Glucose or Hgb A1c, & a - Lipid profile from within the past 365 days. Metabolic Screening Patient on a neuroleptic(s) . Enter below results for Hemoglobin A1C, and lipid panel if obtained during the last 365 days. BMI: 40.200 Blood Pressure: 114/70 Laboratory Results From [facility] (If applicable): Lab Cholesterol 216 MG/DL H 12/10/17 1613 Cholesterol/HDL Ratio 4 % 12/10/17 1613 HDL Cholesterol 52 mg/dL 12/10/17 1613 Hemoglobin A1c 5.1 % 12/10/17 1613 LDL Cholesterol, Calc 137 mg/dL H 12/10/17 1613 Triglycerides 137 mg/dL 12/10/17 1613 Discharge Instructions General Discharge Information Multiple Neuroleptics: ([X]) Not Applicable Discharge Diet Regular Discharge Activity Normal DC Disposition: Home with IOP follow up Referrals Ordered Referrals Provider Referral 12/16/17 For Groups: [[facility]] Pt has an IOP intake appt on 12/16/17 at 1:15pm [address] [place] [address] Prescriptions Stop taking the following medications: [place] Carbonate ([place] Carbonate) (Unknown Strength) CAPSULE ORAL Sertraline HCl (Sertraline HCl) (Unknown Strength) TABLET ORAL Qty = 15 Continue taking these medications: Ethinyl Estradiol/Drospirenone (Gianvi 3 MG-0.02 MG Tablet) 0.02 MG-3 MG (24) TABLET 1 Tablet ORAL DAILY Qty = 28 Comments: Last Taken: 12/16/17 Time: 0800 Epinephrine (Epipen 2-Stefano) 0.3 MG/0.3 ML AUTO.INJCT Unknown Dose INTRAMUSC Qty = 2 Comments: NOT GIVEN IN THE HOSPITAL. Start taking the following new medications: Loratadine (Loratadine) 10 MG TABLET 10 Milligram ORAL DAILY @8 AM Qty = 30 No Refills Comments: Last Taken: 12/16/17 Time: 0800 Topiramate (Topiramate) 25 MG TABLET 25 Milligram ORAL 0800,1700 Qty = 30 No Refills Comments: Last Taken: 12/16/17 Time: 0800 Fluticasone Propionate (Fluticasone Propionate) 50 MCG/ACTUATION SPRAY.SUSP 2 [place] In the nose DAILY Qty = 1 No Refills Comments: Last Taken: 12/16/17 Time: 0800 [place] Carbonate ([place] Carbonate ER) 450 MG TABLET.ER 1 Tablet ORAL TWICE DAILY Qty = 60 No Refills Comments: LAST RECEIVED LITHIUM 300MG ON 12/16/17 @ 0800 HOWEVER PER , FOLLOW NEW INCREASED DOSE PER DISCHARGE INSTRUCTIONS (SEE ABOVE). Guaifenesin/Dextromethorphan (Robitussin Cough-Chest Dm Liq) 100 MG-5 MG/5 ML LIQUID 15 Milliliters ORAL EVERY 4 HOURS NEEDED as needed for cough Qty = 1 No Refills Comments: NOT GIVEN IN THE HOSPITAL. Other Inst/Recommendations blood work next week Studies Pending at Discharge None Copies To: [facility]
--- NOTE | 2017-12-16 13:08 | SOCIAL WORKER PROG NOTE PSYCH ---
Social Work Progress Note Faxed Referral(s) Referred To: [facility] Transition of Care Documents sent: Health Summary Faxed to: [facility] Fax #: [phone] Faxed by: Makenna Luna Date faxed: 12/16/17 Time Faxed: 1300
--- NOTE | 2017-12-16 16:25 | SOCIAL WORKER PROG NOTE PSYCH ---
Social Work Progress Note Faxed Referral(s) Referred To: [facility] Transition of Care Documents sent: Transfer Summary Faxed to: [facility] Fax #: [phone] Faxed by: Shira Mistry LCSW Date faxed: 12/16/17 Time Faxed: [phone]
== END 2017-12-16 13:07 | DRG 885 ==
LOC: ERH 12:56 → CP SOUTH 12-11 12:31 → ENRESERV 12-11 16:00 → CP SOUTH 12-12 15:38 → CMPBEDREQ 12-13 10:05 → CP SOUTH 12-16 13:07
PROVIDERS: Emergency Medicine; Psychiatry & Neurology Psychiatry
DX: F31.9 Bipolar disorder, unspecified (principal)
CPT/HCPCS: 36415; 80307; 81001; 81025; 82436; 87086; 93005; 93010; G0463; G0480; J3490

== ENCOUNTER 2018-02-01 21:32 | Emergency (ER) | payer OTHER ==
[~2018-02-01] VITALS: Ht 160 cm; Wt 106.6 kg
[~2018-02-01 21:32] MED LIST: EPIPEN 2-P0.3 MG/0.3 IM; FLUTICASONE PRO16 GM NAS; GIANVI 3 MG-0.1 EACH PO; LITHIUM CARBON300 M4 PO; LITHIUM CARBON450 M1 PO; LORATADINE10 M1 PO; ROBITUSSIN COU237 M1 PO; SERTRALINE HCL100 MG PO; TOPIRAMATE25 M2 PO
--- NOTE | 2018-02-01 22:27 | ED PSYCHIATRIC COMPLAINT ---
History of Present Illness General Chief Complaint: Psychiatric Related Complaint Stated Complaint: +SI Source: patient, family, old records Exam Limitations: no limitations Vital Signs & Intake/Output Vital Signs & Intake/Output Vital Signs Date Time Temp Pulse Resp B/P B/P Pulse O2 O2 Flow FiO2 Mean Ox Delivery Rate 02/02 0855 98.0 73 18 136/72 98 Room Air 02/02 0611 98.1 73 18 112/68 97 Room Air 02/01 2157 98.6 73 18 131/82 97 Room Air ED Intake and Output 02/02 0000 02/01 1200 Intake Total 0 Output Total Balance 0 Intake, Oral 0 Patient 235 lb Weight Weight Reported by Patient Measurement Method Allergies Coded Allergies: shellfish derived (Severe, ANAPHYLAXIS 11/25/17) Reconcile Medications Epinephrine (Epipen 2-Stefano) 0.3 MG/0.3 ML AUTO.INJCT (Unknown Dose) IM allergy (Reported) Ethinyl Estradiol/Drospirenone (Gianvi 3 MG-0.02 MG Tablet) 0.02 MG-3 MG (24) TABLET 1 TAB PO DAILY pcos (Reported) Fluticasone Propionate 50 MCG/ACTUATION SPRAY.SUSP 2 SPRAY DESEAN DAILY nasal allergies Guaifenesin/Dextromethorphan (Robitussin Cough-Chest Dm Liq) 100 MG-5 MG/5 ML LIQUID 15 ML PO Q4 HRS NEEDED PRN cough [place] Carbonate ([place] Carbonate ER) 450 MG TABLET.ER 1 TAB PO BID mood Loratadine 10 MG TABLET 10 MG PO 0800 allergies Topiramate 25 MG TABLET 25 MG PO 0800,1700 weight control Triage Note: PT FROM HOME C/O +SI THOUGHTS FOR THE PAST COUPLE OF MONTHS. PT STATES SHE WAS SEEN HERE AND ADMITTED AT [facility] ON 12/10/17 FOR +SI THOUGHTS, F/U WITH IOP AND BEGAN TO STOP TO SEE AN PRESS WRITER WHO PLACED PT ON LITHIUM. PT STATES "I TRIED TO MAKE AN APPT BUT I COULDNT GET IN TO SEE HER AND I THINK I NEED A MEDICATION ADJUSTMENT" PT DENIES -HI. +SI THOUGHTS THAT INCLUDED A PLAN OF "WATER INTOXICATION AND BURNING HERSELF WITH CIGS" PTS VSS. PT A&0X3. CALM AND COOPERATIVE. Triage Nurses Notes Reviewed? yes : No Patient currently breastfeeds: No HPI: Patient presents complaining of suicidal ideations with a plan to either of water intoxication or to cause results: Anaphylactic shock from shellfish. Patient denies any homicidal ideations. Patient states that she has been taking her medications as prescribed. Patient denies any hallucinations or delusions. (Oni SORIANO,Luigi Esparza) Past History Travel History Traveled to [place] past 21 day No Medical History Any Pertinent Medical History? 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 No (Oni SORIANO,Luigi Esparza) Review of Systems Review of Systems Constitutional: Reports: no symptoms. EENTM: Reports: no symptoms. Respiratory: Reports: no symptoms. Cardiovascular: Reports: no symptoms. GI: Reports: no symptoms. Genitourinary: Reports: no symptoms. Musculoskeletal: Reports: no symptoms. Skin: Reports: no symptoms. Neurological/Psychological: Reports: see HPI, depressed. Hematologic/Endocrine: Reports: no symptoms. Immunologic/Allergic: Reports: no symptoms. All Other Systems: Reviewed and Negative (Oni SORIANO,Luigi Esparza) Physical Exam Physical Exam General Appearance: well developed/nourished, mild distress Head: atraumatic Eyes: Bilateral: PERRL, EOMI. Ears, Nose, Throat: normal pharynx, normal ENT inspection, hearing grossly normal Neck: normal inspection, supple, full range of motion Respiratory: normal breath sounds, chest non-tender, no respiratory distress, lungs clear Cardiovascular: regular rate/rhythm, normal peripheral pulses Gastrointestinal: normal bowel sounds, soft, non-tender Extremities: normal range of motion Neurological/Psychiatric: no motor/sensory deficits, awake, alert, calm, oriented x 3 Appearance/Memory/Insight: appropriate appearance, appropriate insight Behavoir/Eye Contact/Speech: cooperative, normal speech, good eye contact Thoughts/Hallucinations: normal thought pattern, no apparent hallucination Skin: intact, normal color, warm/dry SAD PERSONS Done? CRISSCONSULT OBTAINED (Oni SORIANO,Luigi Esparza) Progress Differential Diagnosis: drug intoxication, drug overdose, drug withdrawal, electrolyte abnormality Plan of Care: Orders Procedure Date/time Status Regular Diet 02/02 B Active Continuous Observation Monitor 02/02 1900 Active Continuous Observation Monitor 02/02 1500 Active Continuous Observation Monitor 02/02 1100 Active Continuous Observation Monitor 02/02 0700 Active Add-on Test (ER Only) 02/01 2205 Active Continuous Observation Monitor 02/01 2141 Active URINE 02/01 2141 Complete URINE DRUG SCREEN FOR ER ONLY 02/01 2141 Complete URINALYSIS 02/01 2141 Complete LITHIUM 02/01 2141 Complete ETHANOL 02/01 2141 Complete COMPREHENSIVE METABOLIC PANEL 02/01 2141 Complete CBC WITHOUT DIFFERENTIAL 02/01 2141 Complete ED CRISIS PSYCH CONSULT 02/01 2141 Active Laboratory Tests 02/01/182236: Anion Gap 12, Estimated GFR > 60, BUN/Creatinine Ratio 17.1, Glucose 94, Calcium 9.3, Total Bilirubin 0.5, AST 20, ALT 23, Alkaline Phosphatase 68, Total Protein 7.1, Albumin 3.8, Globulin 3.3, Albumin/Globulin Ratio 1.2, CBC w Diff NO MAN DIFF REQ, RBC 4.37, MCV 84.8, MCH 28.2, MCHC 33.3, RDW 12.7, MPV 8.4, Gran % 64.1, Lymphocytes % 28.2, Monocytes % 6.6, Eosinophils % 0.8, Basophils % 0.3, Absolute Granulocytes 8.1 H, Absolute Lymphocytes 3.6 H, Absolute Monocytes 0.8 H, Absolute Eosinophils 0.1, Absolute Basophils 0, [place] < 0.2 L, Serum Alcohol < 10.0 02/01/182228: Urine Opiates Screen < 100, Methadone Screen < 40, Barbiturate Screen < 60, Ur Phencyclidine Scrn < 6.00, Amphetamines Screen < 100, U Benzodiazepines Scrn < 85, Urine Cocaine Screen < 50, Urine Cannabis Screen < 5.00, Urine Color YEL, Urine Clarity HAZY H, Urine pH 6.0, Ur Specific [place] >= 1.030, Urine Protein NEG, Urine Ketones NEG, Urine Nitrite NEG, Urine Bilirubin NEG, Urine Urobilinogen 0.2, Ur Leukocyte Esterase SMALL H, Ur Microscopic SEDIMENT EXAMINED, Urine RBC RARE, Urine WBC 50-75 H, Ur Epithelial Cells MANY H, Urine Bacteria MANY H, Urine Mucus MANY H, Urine Hemoglobin NEG, Urine Glucose NEG, Urine Test NEGATIVE Hand-Off Endorsed To: Chester Best MD Endorsed Time: 629 Pending: consult (Oni SORIANO,Luigi Esparza) Comments: To [facility] service of Dr. Isaias Deras. (Chester Best MD) Departure Departure Condition: Stable Referrals: Unknown (PCP/Family) Departure Forms: Customer Survey General Discharge Information (Oni SORIANO,Luigi Esparza) Departure Time of Disposition: 1025 Disposition: OTHER PYSCH Clinical Impression Primary Impression: Depression with suicidal ideation (Chester Best MD)
[2018-02-01 22:49] LABS: ABSOLUTE BASOPHIL COUNT 0 /CUMM (0.0-0.2); ABSOLUTE EOSINOPHIL COUNT 0.1 /CUMM (0.0-0.7); ABSOLUTE GRANULOCYTE CT 8.1 /CUMM (1.4-6.5); ABSOLUTE LYMPH COUNT 3.6 /CUMM (1.2-3.4); ABSOLUTE MONOCYTE COUNT 0.8 /CUMM (0.10-0.60); BASOPHIL % 0.3 % (0.0-2.0); EOSINOPHIL % 0.8 % (0-5); GRANULOCYTE % 64.1 % (42.2-75.2); HEMATOCRIT 37.1 % (37-47); MEAN CORPUSCULAR HGB 28.2 PG (27.0-31.0); MEAN CORPUSCULAR HGB CONC 33.3 G/DL (33.0-37.0); MEAN CORPUSCULAR VOLUME 84.8 FL (81.0-99.0); MEAN PLATELET VOLUME 8.4 FL (7.4-10.4); PLATELET COUNT 309 /CUMM (130-400); RBC DISTRIBUTION WIDTH 12.7 % (11.5-14.5); RED BLOOD CELL CT 4.37 /CUMM (4.20-5.40); WHITE BLOOD CELL COUNT 12.7 /CUMM (4.8-10.8)
[2018-02-01 23:10] LABS: LITHIUM < 0.2 mmol/L (0.6-1.2)
--- NOTE | 2018-02-02 09:22 | ED PSYCH CRISIS CONSULTATION ---
See Addendum Crisis Consult Basic Assessment Date of Consult: 02/02/18 Responsible Person/Accompanied By: N/A Insurance Authorization: Insurance #1: Insurance name: SHARATH GARCIA Phone number: Policy number: [id number] Group number: [id number] Authorization number: ED Provider: Patient's ED Provider: Oni SORIANO,Luigi Esparza Primary Care Physician: Patient's PCP: Unknown PCP's Phone Number: Current Psychiatrist: TUNG- Hayde Hurst- Mckenna De. Chief Complaint: Psychiatric Related Complaint Patient's Quote: "I got worse." Present Illness: The patient is a 22 year old, single female self presenting to the ED with worsening symptoms of depression and suicidal ideations with a plan and intention to act on her thoughts. The patient was admitted to [facility] in December 2017 and transitioned to 7 weeks at [facility], which she left AMA. She is currently seeing a therapist, Baylee Colon in [place] and will start treatment with an Kaylin RUBY on February 12. She states that she did not think that [facility] was helping and has not been consistent with her medications, of note her [place] level is not therapeutic. She rates her depression a 5 out of 10 and anxiety a 4 out of 10, 10 being the most severe. She reports feeling helpless, hopeless, useless and worthless with increased sleep and decreased motivation and energy. She has a history of Bulimia and continues to report binging and purging, with the most recent time being a couple of days ago. She reports that she recently started to self harm, by burning herself with cigarettes. She denies any current homicidal ideations. She states that she has been researching ways to kill herself and that she will do it by "water intoxication, or by sending her body into Anaphylactic Shock. She states that she is allergic to shellfish and knows that her throat will close if she eats them. She has made preparations for this by writing a suicide note and placing it in her wallet. She has historically reported being traumatized by a skin graft surgery when she was 4 and stated positive symptoms of PTSD, however she is now stating that is not the case. She reports that her parents told her this was a traumatic event for her, however she does not feel that way. She states that she recently graduated from [employer] with a degree in Psychology and is now focusing on working more, as finances are a significant stressor. She resides at home with her parents and recently disclosed that she is Ru[place], which they are accepting of. She believes that another inpatient admission would be helpful at this time. JACQUIE spoke to the patients mother (Loren) and father (Michael)- [phone], who report that "she has been much worse and dark." Michael reports that the patient started to burn herself with cigarettes and talk about suicide constantly. Michael reports that the patient has been stating, " why am I here, what is my purpose, and you won't let me ." Michael and Loren are very concerned about her safety and feel that she needs another inpatient admission at this time. The C-SSRS was completed and placed in her chart. Patient's Address: [address] [place] [address] [address] [place] [address] Other Phone Number: Who Do You Live With? Mother Family/Informants Interviewed: Mother- Loren and father- Michael- [phone] Allergies - Coded Allergies: shellfish derived (Severe, ANAPHYLAXIS 11/25/17) Current Medications - Scheduled Medications Ethinyl Estradiol/Drospirenone (Gianvi 3 MG-0.02 MG Tablet) 0.02 MG-3 MG (24) TABLET 1 TAB PO DAILY pcos #28 (Reported) Entered as Reported by Brendan Dougherty on 12/12/17 0157 Fluticasone Propionate 50 MCG/ACTUATION SPRAY.SUSP 2 SPRAY DESEAN DAILY nasal allergies #1 SPRAY Prescribed by Barrington Andrade MD on 12/16/17 [place] Carbonate ([place] Carbonate ER) 450 MG TABLET.ER 1 TAB PO BID mood # 60 TAB Prescribed by Barrington Andrade MD on 12/16/17 Loratadine 10 MG TABLET 10 MG PO 0800 allergies #30 TAB Prescribed by Barrington Andrade MD on 12/16/17 Topiramate 25 MG TABLET 25 MG PO 0800,1700 weight control #30 TAB Prescribed by Barrington Andrade MD on 12/16/17 Scheduled PRN Medications Guaifenesin/Dextromethorphan (Robitussin Cough-Chest Dm Liq) 100 MG-5 MG/5 ML LIQUID 15 ML PO Q4 HRS NEEDED PRN cough #1 BOT Prescribed by Barrington Andrade MD on 12/16/17 Miscellaneous Medications Epinephrine (Epipen 2-Stefano) 0.3 MG/0.3 ML AUTO.INJCT (Unknown Dose) IM allergy #2 (Reported) Entered as Reported by Brendan Dougherty on 12/12/17 0157 Laboratory Results: Laboratory Tests 02/01/182236: Anion Gap 12, Estimated GFR > 60, BUN/Creatinine Ratio 17.1, Glucose 94, Calcium 9.3, Total Bilirubin 0.5, AST 20, ALT 23, Alkaline Phosphatase 68, Total Protein 7.1, Albumin 3.8, Globulin 3.3, Albumin/Globulin Ratio 1.2, CBC w Diff NO MAN DIFF REQ, RBC 4.37, MCV 84.8, MCH 28.2, MCHC 33.3, RDW 12.7, MPV 8.4, Gran % 64.1, Lymphocytes % 28.2, Monocytes % 6.6, Eosinophils % 0.8, Basophils % 0.3, Absolute Granulocytes 8.1 H, Absolute Lymphocytes 3.6 H, Absolute Monocytes 0.8 H, Absolute Eosinophils 0.1, Absolute Basophils 0, [place] < 0.2 L, Serum Alcohol < 10.0 02/01/182228: Urine Opiates Screen < 100, Methadone Screen < 40, Barbiturate Screen < 60, Ur Phencyclidine Scrn < 6.00, Amphetamines Screen < 100, U Benzodiazepines Scrn < 85, Urine Cocaine Screen < 50, Urine Cannabis Screen < 5.00, Urine Color YEL, Urine Clarity HAZY H, Urine pH 6.0, Ur Specific [place] >= 1.030, Urine Protein NEG, Urine Ketones NEG, Urine Nitrite NEG, Urine Bilirubin NEG, Urine Urobilinogen 0.2, Ur Leukocyte Esterase SMALL H, Ur Microscopic SEDIMENT EXAMINED, Urine RBC RARE, Urine WBC 50-75 H, Ur Epithelial Cells MANY H, Urine Bacteria MANY H, Urine Mucus MANY H, Urine Hemoglobin NEG, Urine Glucose NEG, Urine Test NEGATIVE Past History Past Medical History Neurological: NONE EENT: NONE Cardiovascular: NONE Respiratory: NONE Gastrointestinal: NONE Hepatic: NONE Renal: NONE Musculoskeletal: NONE Psychiatric: bipolar disease, depression, BORDLERLINE PERSONALITY Endocrine: NONE Blood Disorders: NONE Cancer(s): NONE 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 Physical Limitations (Interventions): None noted Psychiatric Treatment History Psych Treatment Psychiatric Treatment Yes Inpatient Treatment Yes Outpatient Treatment Yes Location of Treatment [facility], [facility] Reason for Treatment Depression and suicidal ideations Dates of Treatment [facility] December 2017, [facility] January 2018, [facility] Response to Treatment She did not feel that IOP was helpful and has not been consistent with medications. Diagnosis by History: Depression Substance Use/Abuse History Drug Use/Abuse Substances Used/Abused No (Pt. denies) First Use N/A Last Used N/A How much used/taken N/A How often N/A For how long N/A Route of use N/A Substance Abuse Treatment Substance Abuse Treatment Past Substance Abuse [place] No Inpatient Treatment No Outpatient Treatment No Location of Treatment N/A Reason for Treatment N/A Dates of Treatment N/A Response to Treatment N/A Comments: N/A Current Mental Status Mental Status Orientation: Person, Place, Situation Affect: Depressed Speech: WNL Neuro-vegetative: Concentration Poor, Energy Decreased, Helpless, Sleep Disturbance, Feeling hopeless Appearance Appearance- Dress/Hygiene: She was sitting in bed, in hospital attire, a bit disheveled with a nose ring. Behaviors Thought Process: WNL Thought Content: WNL Memory: WNL Insight: WNL SI/HI Risk Assessment Past Suicidal Ideation/Attempts Yes Current Suicidal Ideation/Att Yes Past Homicidal Ideation/Att: No Current Homicidal Ideation/Attempts No Degree of Intent: Made Preparations, Plan, States Intent, She reports that her sucidal ideations have been increasing and she has a plan to kill herself by "water intoxicaiton," or by eating Shellfish, which she is allergic too. She states that she started to prepare for this by writing a suicide note and placing it in her wallet. Her parents state that she talks about suicide constantly. Danger To: Self Gravely Disabled: Poor Impulse Control Risk Factors: age (under 24/over 65), access to lethal means, high anxiety/ distress, SA/MH hospitalized, poor impulse control, limited support Lethality Ratin PTSD Checklist PTSD Done? patient declined (Denied any symptoms of PTSD) ED Management Sitter: Yes Restraints: No DSM5/PS Stressors/Medical Prob Diagnosis' (DSM 5, Stressors, Medical): F32.9 Unspecified Depressive Disorder F41.9 Unspecified Anxiety Disorder F50.9 Unspecified Feeding or Eating Disorder Medical: Unremarkable Stressors: Finances Current GAF: 25 Comments: N/A Departure Disposition Psych Medical Clearance Date: 02/02/18 Medically Cleared at: 729 Time Started: 729 Time Ended: 829 Psychiatrist Consulted: Maeve Rubin MD Date Disposition Established: 02/02/18 Time Disposition Established: 929 Plan for Disposition - Modality: Bed Search Facility: To be determined Contact: N/A Telephone: N/A Rationale for Disposition: The patient presents with suicidal ideations, with a plan to eat Shellfish ( which she is allergic too), or drink water until she dies. She has done research on both methods and has written a suicide note, which she states is in her wallet. She presents as depressed, anxious and reports feeling helpless, hopeless, worthless and useless. Case discussed with Dr. Rubin and she finds her to be an acute risk to self and in need [facility] There are no beds [facility] and therefore a bed search will be started. Type of IP Admission: Voluntary Additional Instructions: N/A Referrals Unknown (PCP/Family)
[2018-02-02 11:32] VITALS: BP 140/80
== END 2018-02-02 11:39 | disposition other institution (70) ==
LOC: ERH 21:32
PROVIDERS: Physician Assistant Medical
DX: F32.9 Major depressive disorder, single episode, unspecified (principal); R45.851 Suicidal ideations
CPT/HCPCS: 80307; 81001; 81025; G0463; G0480